=== PATIENT | male | born 1985 | race Caucasian/White ===

== ENCOUNTER → 2018-11-26 | Outpatient (CLI) | payer BC ==
--- NOTE | 2018-11-26 10:04 | US ---
EXAMINATION TYPE: US abdomen limited DATE OF EXAM: 11/26/2018 COMPARISON: NONE CLINICAL HISTORY: R19.8 elevated liver function test. 1 episode of RUQ pain, elevated lft's EXAM MEASUREMENTS: Liver Length: 15.5 cm Gallbladder Wall: 0.3 cm CBD: 0.4 cm Right Kidney: 11.6 x 5.1 x 5.9 cm Pancreas: limited views Liver: intercostal imaging due to bowel gas, wnl Gallbladder: wnl Evidence for sonographic Morton's sign: no CBD: wnl Right Kidney: wnl IMPRESSION: Mild hepatic steatosis.
== END | disposition home or self-care (01) ==
LOC: RADUSWWP 09:33
PROVIDERS: ATTEND Internal Medicine
DX: K76.0 Fatty (change of) liver, not elsewhere classified (principal)
CPT/HCPCS: 76705